=== PATIENT | female | born 1975 | race Caucasian/White ===

== ENCOUNTER 2017-07-25 03:35 | Emergency (ER) | payer SELFPAY ==
[2017-07-25] MEDS ORDERED: Ketorolac 60 MG/2 ML SDV IM ONE (03:42)
--- NOTE | 2017-07-25 03:46 | EDM.PDOC ---
ED HPI GENERAL MEDICAL PROBLEM - General Chief Complaint: Neck Problem Stated Complaint: FELL A FEW DAYS AGO AND HURT HER NECK Time Seen by Provider: 07/25/17 03:43 - History of Present Illness INITIAL COMMENTS - FREE TEXT/NARRATIVE: HISTORY AND PHYSICAL: History of present illness: Patient 42-year-old female presents with concern of neck pain she states she was wrestling the other day with a friend and injured her neck she denies any numbness weakness denies any had chest or abdominal pain or trauma she denies other concern Review of systems: As per history of present illness and below otherwise all systems reviewed and negative. Past medical history: As per history of present illness and as reviewed below otherwise noncontributory. Surgical history: As per history of present illness and as reviewed below otherwise noncontributory. Social history: No reported history of drug or alcohol abuse. Family history: As per history of present illness and as reviewed below otherwise noncontributory. Physical exam: HEENT: Atraumatic, normocephalic, pupils reactive, negative for conjunctival pallor or scleral icterus, mucous membranes moist, throat clear, neck no vertebral body tenderness no point tenderness no cervical radicular findings, nontender, trachea midline. Lungs: Clear to auscultation, breath sounds equal bilaterally, chest nontender. Heart: S1S2, regular, negative for clicks, rubs, or JVD. Abdomen: Soft, nondistended, nontender. Negative for masses or hepatosplenomegaly. Negative for costovertebral tenderness. Pelvis: Stable nontender. Genitourinary: Deferred. Rectal: Deferred. Extremities: Atraumatic, negative for cords or calf pain. Neurovascular unremarkable. Neuro: Awake, alert, oriented. Cranial nerves II through XII unremarkable. Cerebellum unremarkable. Motor and sensory unremarkable throughout. Exam nonfocal. Diagnostics: X-ray C-spine Therapeutics: Toradol 60 mg IM Impression: #1 cervical strain Definitive disposition and diagnosis as appropriate pending reevaluation and review of above. - Related Data Allergies Allergy/AdvReac Type Severity Reaction Status Date / Time No Known Allergies Allergy Verified 07/25/17 03:41 Home Meds: Home Meds . [No Known Home Meds] 07/25/17 [History] ED ROS GENERAL - Review of Systems Review Of Systems: ROS reveals no pertinent complaints other than HPI. ED EXAM, GENERAL - Physical Exam Exam: See Below (See dictation) Course - Orders/Labs/Meds Orders: Active Orders 24 hr Category Date Time Status Cervical Spine 2V or 3V [CR] Stat Exams 07/25/17 03:42 Ordered Meds: Medications Discontinued Medications Generic Name Dose Route Start Last Admin Trade Name Brant PRN Reason Stop Dose Admin Ketorolac Tromethamine 60 mg 07/25/17 03:42 Toradol IM 07/25/17 03:43 ONETIME ONE Departure - Departure Time of Disposition: 03:44 Disposition: Home, Self-Care 01 Condition: Good Clinical Impression: Cervical strain - Discharge Information Referrals: PCP,None [Primary Care Provider] - Additional Instructions: The following information is given to patients seen in the emergency department who are being discharged to home. This information is to outline your options for follow-up care. We provide all patients seen in our emergency department with a follow-up referral. The need for follow-up, as well as the timing and circumstances, are variable depending upon the specifics of your emergency department visit. If you don't have a primary care physician on staff, we will provide you with a referral. We always advise you to contact your personal physician following an emergency department visit to inform them of the circumstance of the visit and for follow-up with them and/or the need for any referrals to a consulting specialist. The emergency department will also refer you to a specialist when appropriate. This referral assures that you have the opportunity for followup care with a specialist. All of these measure are taken in an effort to provide you with optimal care, which includes your followup. Under all circumstances we always encourage you to contact your private physician who remains a resource for coordinating your care. When calling for followup care, please make the office aware that this follow-up is from your recent emergency room visit. If for any reason you are refused follow-up, please contact the [facility] emergency department at and asked to speak to the emergency department charge nurse. [facility] [address] [place] [id number] [place] as prescribed follow-up primary medical doctor and/or clinic above is discussed return as needed as discussed - My Orders Last 24 Hours: My Active Orders 07/25/17 03:42 Cervical Spine 2V or 3V [CR] Stat - Assessment/Plan Last 24 Hours: My Active Orders 07/25/17 03:42 Cervical Spine 2V or 3V [CR] Stat
[2017-07-25 04:26] VITALS: BP 155/90
--- NOTE | 2017-07-25 19:09 | CR ---
EXAM DATE: 07/25/17 PATIENT'S AGE: 42 Patient: JANETH XAVIER Facility: [place], [place] Site . Site : [id number] Study: XRay Spine Cervical [id number]/5/2017 4:04:10 AM Ordering Physician: Doctor Salazar Final Report: INDICATION: Fell a few days ago, neck pain TECHNIQUE: Cervical spine 3 view. COMPARISON: None FINDINGS: The lateral film includes the skull base to the T1 superior endplate. Bones: Alignment is normal. No fractures or significant bone lesions. Joints: Mild multilevel degenerative changes. Soft tissues: Unremarkable. IMPRESSION: Unremarkable cervical spine. Dictated by Ivania Vincent MD @ Jul 25 2017 4:08AM (Electronic Signature) Report Signed by Proxy. THOMAS
== END 2017-07-25 04:24 | disposition home or self-care (01) ==
LOC: MW.ED 03:35
DX: S16.1XXA Strain of muscle, fascia and tendon at neck level, initial encounter (principal); X58.XXXA Exposure to other specified factors, initial encounter; Y93.72 Activity, wrestling
CPT/HCPCS: 72040; 96372; 99283; J1885; 99282